=== PATIENT | male | born 2000 | race Caucasian/White ===

== ENCOUNTER 2019-02-03 02:16 | Emergency (ER) | payer OTHER ==
[2019-02-03] MEDS ORDERED: Ondansetron ODT 4 MG TAB ONE (05:02)
[2019-02-03 06:01] LABS: Bilirubin Negative (Negative); Blood, Urine Negative (Negative); Clarity Clear (Clear); Glucose, Urine (Dipstick) Normal (Negative); Leukocyte Negative Leu/uL (Negative); Nitrite Negative (Negative); Protein, Urine (Dipstick) Negative (Neg-Trace); Urobilinogen Normal mg/dL (Less than 2)
[2019-02-03 06:09] LABS: Amphetamine Detected (NotDetected); Barbiturates Screen Not Detected (NotDetected); Benzodiazepine Screen Not Detected (NotDetected); Cocaine Metabolite Screen Not Detected (NotDetected); Medtox Control Line Valid? VALID (VALID); Medtox Reader # READER 1; Methadone Not Detected (NotDetected); Methamphetamine Not Detected (NotDetected); Opiate Screen Not Detected (NotDetected); Oxycodone Screen Not Detected (NotDetected); Phencyclidine (PCP) Not Detected (NotDetected); THC/Cannabinoid Screen Detected (NotDetected); Tricyclic Screen Not Detected (NotDetected)
--- NOTE | 2019-02-03 09:27 | ULT ---
PRELIMINARY REPORT/[facility]/EMERGENCY AFTER HOURS PROCEDURE: PROCEDURE INFORMATION: Exam: US DUPLEX PENILE VESSELS COMPLETE Exam date and time: 02/03/2019 3:10 AM Age: 18 years old Clinical history: Symptoms: 18yo with numbness to the penis- eval flow, no injury TECHNIQUE: Imaging protocol: US DUPLEX PENILE VESSELS COMPLETE COMPARISON: No relevant prior studies available. FINDINGS: Other findings: Arterial flow is demonstrated in the entire penis. Venous flow is probably present as well. IMPRESSION: Blood flow demonstrated throughout the penis. Thank you for allowing us to participate in the care of your patient. Dictated and Authenticated by: Sulaiman Sinha MD 02/03/2019 4:49 AM Central Time ([place] & [place]) FINAL REPORT DUPLEX ULTRASOUND OF PENILE VESSELS: HISTORY: 18-year-old complaining of numbness to penis. No history of injury. FINDINGS: Real-time imaging was performed. It shows vascular flow with arterial flow and what appears to also b e venous flow demonstrated. No abnormalities are demonstrated. IMPRESSION: Blood flow demonstrated to penis. This report is in agreement with the preliminary report issued by [facility]. POS: [facility]
== END 2019-02-03 07:16 | disposition home or self-care (01) ==
LOC: ERS 02:16
DX: F41.1 Generalized anxiety disorder (principal); F17.200 Nicotine dependence, unspecified, uncomplicated
CPT/HCPCS: 76999; 80306; 81003; 96372; 99284; Q0162